=== PATIENT | female | born 1940 | race Caucasian/White ===

== ENCOUNTER 2021-03-14 08:00 | Emergency (ER) | payer MEDICARE, OTHER ==
[~2021-03-14 08:00] MED LIST: ERYTHROMYCIN O3.5 GM OS
[2021-03-14 09:12] LABS: HEMOGLOBIN 15.7 gm/dl (12.3-15.3); RED BLOOD COUNT 4.81 M/UL (4.00-5.10); WHITE BLOOD COUNT 6.8 K/UL (4.5-11.0)
[2021-03-14 09:35] LABS: BUN/CREATININE RATIO 14 (0-10)
[2021-03-14] MEDS ORDERED: MACROBID 100 M100 MG PO (10:31)
== END 2021-03-14 12:10 | disposition home or self-care (01) ==
LOC: ER1 08:00
PROVIDERS: Physician Assistant
DX: N39.0 Urinary tract infection, site not specified (principal); R53.1 Weakness; I10 Essential (primary) hypertension; E78.5 Hyperlipidemia, unspecified; Z79.82 Long term (current) use of aspirin
CPT/HCPCS: 70450; 71045; 80053; 81001; 82550; 82553; 83874; 84484; 85025; 87086; 93005; 99285; J7040

== ENCOUNTER → 2022-03-02 | Outpatient (CLI) | payer MEDICARE, OTHER ==
[~2022-03-02] MED LIST changes: +MACROBID 100 M100 MG PO
== END ==
LOC: KOH-I 15:27
DX: M47.22 Other spondylosis with radiculopathy, cervical region (principal)
CPT/HCPCS: 72052

== ENCOUNTER 2022-03-17 12:00 | Emergency (ER) | payer MEDICARE, OTHER ==
[2022-03-17 13:34] LABS: HEMOGLOBIN 13.3 gm/dl (12.3-15.3); RED BLOOD COUNT 4.09 M/UL (4.00-5.10)
== END 2022-03-17 16:05 | disposition home or self-care (01) ==
LOC: ER1 12:00
PROVIDERS: Nurse Practitioner
DX: R53.1 Weakness (principal); Z20.822 Contact with and (suspected) exposure to COVID-19; I11.9 Hypertensive heart disease without heart failure; Z86.73 Personal history of transient ischemic attack (TIA), and cerebral infarction without residual deficits; Z95.0 Presence of cardiac pacemaker
CPT/HCPCS: 0240U; 70450; 71045; 80053; 80307; 81001; 82550; 82553; 83735; 84100; 84439; 84443; 84484; 85025; 85610; 85730; 93005; 99285